=== PATIENT | male | born 1990 | race Caucasian/White ===

== ENCOUNTER 2021-06-02 01:36 | Emergency (ER) | payer OTHER ==
[~2021-06-02] VITALS: Ht 177.8 cm; Wt 74.8 kg
[2021-06-02] MEDS ORDERED: DOXYCYCLINE HY100 MG PO (01:59)
== END 2021-06-02 02:02 | disposition home or self-care (01) ==
LOC: ER 01:58
DX: L02.413 Cutaneous abscess of right upper limb (principal)
CPT/HCPCS: 99282